=== PATIENT | female | born 1980 | race Caucasian/White ===

== ENCOUNTER 2020-01-01 22:59 | Emergency (ER) | payer OTHER ==
[~2020-01-01] VITALS: Ht 78.7 cm; Wt 54.4 kg
[2020-01-01 23:19] VITALS: BP 123/72
--- NOTE | 2020-01-01 23:20 | NUR ---
ED Nurse Note: PT BIBA [facility] FROM [facility] C/O SYNCOPAL EPISODE. BS [employer]. NO TRAUMA NOTED, PT STATES TAKING LABETALOL TODAY BUT HAD NOTHING TO EAT. VSS, NAD, ERMD AT BEDSIDE. WILL CONTINUE TO MONITOR PATIENT.
--- NOTE | 2020-01-01 23:59 | Emergency Room Report ---
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 She states she is been working all day today. She has any drink anything. She started around 6 AM and work all the way through. She also took labetalol and propanolol for performance anxiety. She presents with complaint of syncope. Onset occurred just prior to arrival. Patient said after her performance she orders improved. Took an hour to get there. When she started eating it she felt nauseous. She felt she cannot vomit. She stood up to go to the bathroom and had a syncopal episode. Witnessed by friends. No fever or chills. No nausea no vomiting. No head injury. She felt better now. Denies any other complaint. Allergies: Coded Allergies: No Known Allergies (Unverified , 01/01/20) Patient History Past Medical History: see triage record, old chart reviewed Past Surgical History: none Pertinent Family History: none Social History: Denies: smoking Now: No Immunizations: other Reviewed Nursing Documentation: PMH: Agreed; PSxH: Agreed Nursing Documentation-PMH Past Medical History: No Stated History Review of Systems Eye: Denies: eye pain, blurred vision ENT: Denies: ear pain, nose congestion, throat swelling Respiratory: Denies: cough, shortness of breath Cardiovascular: Denies: chest pain, palpitations Gastrointestinal: Denies: abdominal pain, diarrhea, nausea, vomiting Musculoskeletal: Denies: back pain, joint pain Skin: Denies: rash Neurological: Denies: headache, numbness Endocrine: Denies: increased thirst, increased urine Hematologic/Lymphatic: Denies: easy bruising All Other Systems: negative except mentioned in HPI Physical Exam Vital Signs Date Time Temp Pulse Resp B/P (MAP) Pulse Ox O2 Delivery O2 Flow Rate FiO2 01/01/20 23:00 97.9 60 18 112/86 (95) 96 Room Air Vitals unremarkable Sp02 EP Interpretation: reviewed, normal General Appearance: well appearing, no apparent distress, alert Head: normocephalic, atraumatic Eyes: bilateral eye PERRL, bilateral eye EOMI ENT: hearing grossly normal, normal pharynx Neck: full range of motion, supple, no meningismus Respiratory: chest non-tender, lungs clear, normal breath sounds Cardiovascular #1: regular rate, rhythm, no murmur Gastrointestinal: normal bowel sounds, non tender, no mass, no organomegaly, no bruit, non-distended Musculoskeletal: back normal, normal range of motion, gait/station normal Psychiatric: mood/affect normal Medical Decision Making Diagnostic Impression: Primary Impression: Syncope Qualified Codes: R55 - Syncope and collapse ER Course Patient presents with syncope. This probably a combination of dehydration and beta-blockade from her propanolol and labetalol. She is back to baseline now. Patient hydrated here. EKG is unremarkable. Will discharge home. EKG Diagnostic Results Rate: normal Rhythm: NSR ST Segments: no acute changes Rhythm Strip Diag. Results EP Interpretation: yes Rate: 62 Rhythm: NSR, no PVC's, no ectopy Last Vital Signs Date Time Temp Pulse Resp B/P (MAP) Pulse Ox O2 Delivery O2 Flow Rate FiO2 01/01/20 23:19 97.9 72 18 123/72 96 Room Air Status: improved Disposition: HOME, SELF-CARE Condition: Stable Patient Instructions: Syncope Additional Instructions: Increase fluids. Eat regularly. Follow-up with your doctor in 7 days but return if symptoms worsen. Anders James MD Jan 01, 2020 23:59
[2020-01-02 00:10] VITALS: BP 121/69
== END 2020-01-02 00:10 | disposition home or self-care (01) ==
LOC: EDBD 22:59 → EMR 23:22
DX: R55 Syncope and collapse (principal); R11.0 Nausea
CPT/HCPCS: 93005; 96360; 99284